=== PATIENT | female | born 1965 | race Caucasian/White ===

== ENCOUNTER 2020-09-15 06:00 | Day surgery (SDC) | payer MEDICAID ==
[2020-09-11 11:59] LABS: ALBUMIN 3.8 G/DL (3.4-5.0); ALKALINE PHOSPHATASE 107 IU/L (46-116); BLOOD UREA NITROGEN 12 MG/DL (7-18); CALCIUM 10.5 MG/DL (8.5-10.1); CHLORIDE 105 MMOL/L (99-107); CREATININE 0.63 MG/DL (0.40-0.90); PRE OP ALT 49 U/L (30-65); PRE OP ANION GAP 9 (8-16); PRE OP AST 39 U/L (10-37); PRE OP BILIRUB, TOTAL 0.6 MG/DL (0.0-1.0); PRE OP GLUCOSE 103 MG/DL (70-104); PRE OP SODIUM 141 MMOL/L (135-145); TOTAL CARBON DIOXIDE 27.3 MMOL/L (24-32); TOTAL PROTEIN 7.5 G/DL (6.4-8.2); eGFR > 90 ML/MIN
[2020-09-11 12:07] LABS: BASOPHILS # (AUTO) 0.1 X10'3 (0-0.2); BASOPHILS % (AUTO) 1.2 % (0-1); EOSINOPHILS # (AUTO) 0.4 X10'3 (0-0.9); EOSINOPHILS % (AUTO) 7.3 % (0-6); LYMPHOCYTES # (AUTO) 2.3 X10'3 (1.1-4.8); LYMPHOCYTES % (AUTO) 43.3 % (21-51); MEAN CORPUSCULAR HEMOGLOBIN 28.1 PG (27.0-31.0); MEAN CORPUSCULAR HGB CONC 33.1 g/dL (33.0-36.5); MEAN PLATELET VOLUME 7.9 FL (7.4-10.4); MONOCYTES # (AUTO) 0.5 X10'3 (0-0.9); MONOCYTES % (AUTO) 10.1 % (2-12); NEUTROPHILS % (AUTO) 38.1 % (42-75); PRE OP HEMATOCRIT 41.9 % (35.0-45.0); PRE OP HEMOGLOBIN 13.9 g/dL (12.0-16.0); PRE OP PLATELET COUNT 326 X10'3 (140-440); RED BLOOD COUNT 4.93 X10'6 (4.20-5.60); RED CELL DISTRIBUTION WIDTH 16.4 % (11.5-14.5)
[~2020-09-15] VITALS: Ht 167.6 cm; Wt 122.7 kg
[2020-09-15] VITALS (7 sets, daily range): BP systolic 109–117; BP diastolic 66–78
[~2020-09-15 06:00] MED LIST: ASPI-1475 PO; CETI-90 PO; GABA300C PO; HYDR-3972 PO; MULT-1085 PO; cefazolin/dext.iso 2gm/100ml IV ONE; famotidine 20mg tablet PO ONE; ringers solution, lacted 1,000 ML IV SCH
[2020-09-15] MEDS ORDERED: BUPIVAcaine/PF 2.5 mg/ml (0.25%) 30ml vial ONE (06:39)
[2020-09-15] MEDS ORDERED: LIDOcaine 0.5% (5mg/ml) 50ml vial ONE (07:14)
[2020-09-15] MEDS ORDERED: ceFAZolin/D5W- 1GM premix 50 ML IV ONE (07:40)
[2020-09-15] MEDS ORDERED: morphine 4 MG/ML inj SYRINge IV PRN (08:10)
[2020-09-15] MEDS ORDERED: ringers solution, lacted 1,000 ML IV SCH (08:10)
[2020-09-15] MEDS ORDERED: proCHLORperazine 10 MG/2 ml inj IV PRN (08:10)
[2020-09-15] MEDS ORDERED: ondansetron/PF 4mg/2ml inj IV PRN (08:10)
[2020-09-15] MEDS ORDERED: morphine 2 MG/ML inj. syringe IV PRN (08:10)
[2020-09-15] MEDS ORDERED: labetalol 20mg/4ml (5mg/ml) syringe IV PRN (08:10)
[2020-09-15] MEDS ORDERED: acetaminophen 1,000mg/100ml IV 100 ML IV PRN (08:10)
[2020-09-15] MEDS ORDERED: meperidine/PF 25mg/ml syringe IV PRN ×3 (08:10)
[2020-09-15] MEDS ORDERED: hydrALAZINE 20mg/ml inj. IV PRN (08:10)
[2020-09-15] MEDS ORDERED: midazolam 1 mg/ML 2ml injection ONE (08:15)
[2020-09-15] MEDS ORDERED: fentaNYL/PF 50MCG/1 ML 2ML syringe ONE (08:15)
[2020-09-15] MEDS ORDERED: propofol inj 20 ML IV ONE (08:34)
--- NOTE | 2020-09-15 08:42 | NUR ---
Received from OR via [facility], accompanied by Anesthesiologist DR SANCHEZ and report given by Anesthesiologist. 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 Addendum: 09/15/20 at 0901 by Reanna Minor RN Amended: Links added.
--- NOTE | 2020-09-15 09:42 | NUR ---
PT COMFORTABLE, DENIES PAIN, D/C INSTRUCTIONS GIVEN AND GONE OVER W/PT WHO VERBALIZED UNDERSTANDING. PT D/CD TO HOME VIA W/C TO PRIVATE VEHICLE W/O INCIDENT. Addendum: 09/15/20 at 1000 by Reanna Minor RN Amended: Links added.
== END 2020-09-15 09:42 | disposition home or self-care (01) ==
LOC: PAS 06:00
PROVIDERS: ATTEND Orthopaedic Surgery Hand Surgery
DX: G56.02 Carpal tunnel syndrome, left upper limb (principal); J45.909 Unspecified asthma, uncomplicated; G43.909 Migraine, unspecified, not intractable, without status migrainosus; M19.072 Primary osteoarthritis, left ankle and foot; E66.9 Obesity, unspecified; Z68.41 Body mass index [BMI] 40.0-44.9, adult; Z96.651 Presence of right artificial knee joint; Z20.822 Contact with and (suspected) exposure to COVID-19; Z90.49 Acquired absence of other specified parts of digestive tract; Z88.8 Allergy status to other drugs, medicaments and biological substances; Z91.09 Other allergy status, other than to drugs and biological substances; Z79.899 Other long term (current) drug therapy; Z79.82 Long term (current) use of aspirin; Z82.61 Family history of arthritis; Z82.49 Family history of ischemic heart disease and other diseases of the circulatory system; Z83.6 Family history of other diseases of the respiratory system; Z80.8 Family history of malignant neoplasm of other organs or systems
CPT/HCPCS: 29848; 36415; 80053; 82948; 85025; 93005; J0131; J2001; J2175; J2250; J2704; J3010; J3490; U0003; U0005; A4215; A7000; J7120

== ENCOUNTER → 2023-08-13 | Outpatient (CLI) | payer MEDICARE, MEDICAID ==
[~2023-08-13] MED LIST changes: -cefazolin/dext.iso 2gm/100ml IV ONE; -famotidine 20mg tablet PO ONE; -ringers solution, lacted 1,000 ML IV SCH
== END | disposition home or self-care (01) ==
LOC: RAD 12:41
PROVIDERS: ATTEND Nurse Practitioner
DX: Z01.818 Encounter for other preprocedural examination (principal)
CPT/HCPCS: 71045

== ENCOUNTER 2024-09-23 12:35 | Outpatient (CLI) | payer MEDICARE, MEDICAID ==
[~2024-09-23 12:35] MED LIST changes: -ASPI-1475 PO; -GABA300C PO; -HYDR-3972 PO; +albuterol IH; +vitamin D PO
--- NOTE | 2024-09-23 14:55 | RADIOLOGY REPORT ---
Procedure: CT CT LOWER EXTREMITY Reason for study/Clinical History: PAIN IN LEFT FOOT Comparison Study: None CTA LOWER EXTREMITY RUNOFF WITH CONTRAST DATED 09/23/2024 12:53 PM Radiation Dose Information: CT Dose: CTDI volume is 14.36+ 0.14 mGy. Dose-length product is 401.64 mGy*cm TECHNIQUE: Multiple contiguous CT axial images obtained of the left foot without intravenous contrast . Coronal and sagittal reformatted images obtained from the source axial data. FINDINGS: Slight bony demineralization. Alignment is maintained. There is fusion of the interphalangeal joints of the 2nd and 3rd digits and partially in the 4th and 5th digits. Mild degenerative changes of the tibiotalar joint as well as the talonavicular and subtalar joints. Dorsal and plantar calcaneal enth esophytes. Dorsal fixation devices and fusion is seen within the cuneiforms and the navicular. The kim rdware components are intact without periprosthetic lucency or fracture. Muscle bundles of the left f oot are intact. There is subcutaneous edema in the plantar aspect of the foot. IMPRESSION: 1. No acute fracture or traumatic malalignment. 2. Dorsal fixation devices and fusion within the cuneiforms and the navicular. The hardware component s are intact. 3. Degenerative changes of the left ankle and foot.
== END 2024-09-23 23:59 | disposition home or self-care (01) ==
LOC: RAD 12:35
PROVIDERS: ATTEND Family Medicine
DX: M19.072 Primary osteoarthritis, left ankle and foot (principal); M79.672 Pain in left foot; M77.32 Calcaneal spur, left foot
CPT/HCPCS: 73700

== ENCOUNTER 2024-11-13 22:38 | Emergency (ER) | payer MEDICARE, MEDICAID ==
[~2024-11-13] VITALS: Ht 167.6 cm; Wt 95.3 kg
[2024-11-13 22:54] VITALS: BP 154/57; PULSE 77; O2SAT 99
[2024-11-13] MEDS ORDERED: BUPIVAcaine 0.5% W/EPI /PF 10ml vial IJ STA (23:00)
[2024-11-14 01:15] VITALS: RESP 15
[2024-11-14] MEDS: ketorolac trometh 15mg/ml vial 15 MG/ML ML IM ONE (01:15)
--- NOTE | 2024-11-14 01:16 | Physician Documentation ---
HPI ~ General Chief Complaint: Tooth Problem Stated Complaint: BROKEN TOOTH Time Seen by MD: 01:16 History of Present Illness HPI Comment 59-year-old female presenting with dental pain She tells me that she was biting down on a frozen protein bar, when she felt her right upper front tooth crack. She reports pain in that tooth only. She looked in the mirror and it looks broken. She did not take any pain medication or other treatments. She did have a root canal on that tooth in the past. No other acute concerns. Medication Reconciliation Allergies: Coded Allergies: adhesive (Verified Allergy, Unknown, BUMPY RED ITCHY RASH, 11/13/24) prednisolone (Verified Allergy, Unknown, ITCHING, RED FACE & BURNING, ) propranolol (Verified Adverse Reaction, Unknown, DAZED AND CONFUSED, 11/13/24) Scheduled Multivitamin (Multi Vitamin Daily), 1 TAB PO DAILY, (Reported) [vitamin D], 1 TAB PO DAILY, (Reported) Scheduled PRN Cetirizine HCl (Zyrtec), 1 TAB PO PRN PRN for allergies, (Reported) [albuterol], 90 MCG IH PRN PRN for SOB or wheezing, (Reported) Review of Systems ENT: Reports: mouth pain Physical Exam Vital Signs: Temperature: 96.3, Source: Temporal, Heart Rate: 77, Respiratory Rate: 15, BP: 154/57, Pulse Oximetry: 99, Weight: 95.350 Physical Exam General: This is a pleasant and slightly uncomfortable appearing middle-aged woman, not in distress HEENT: oropharynx is moist On exam, tooth number 8 is tender to palpation. There is a crack through the posterior tooth that extends across the entire tooth, consistent with a fracture. Heart: Regular rate and rhythm, normal-appearing peripheral perfusion Lungs: normal work of breathing, normal oxygen saturation on room air Neuro: Alert and oriented Psychiatric: Calm and cooperative with exam Procedures Procedures Procedure note: Fractured tooth repair Indication: Tooth fracture, pain control The consent: Verbal consent obtained from the patient Procedure: A dental block was performed using bupivacaine, for pain control. Using dental cement, cement was applied over the fractured tooth, and to dry. The patient tolerated this well, no complications. Progress Results/Orders Results/Orders Vital Signs 11/13/24 11/14/24 11/14/24 22:54 01:15 02:56 Temp 96.3 96.3 Pulse 77 Resp 15 15 B/P (MAP) 154/57 Pulse Ox 99 Medical Decision Making Differential Dx:Considerations: Include: Alveolar fracture, Tooth avulsion, Tooth Fracture, Tooth subluxation Additional Comment The patient presents with a fractured tooth. She was given a dental block for pain control. Cement was placed over the broken tooth to prevent movement and to protect the fracture site. She will be discharged with symptomatic treatment and outpatient follow up with a dentist. Departure Time of Disposition: 02:46 Disposition: 01 HOME / SELF CARE / HOMELESS Impression: Primary Impression: Tooth fracture Condition: Improved Discharge Instructions: Dental Pain Referrals: NO PRIMARY CARE PROVIDER (PCP) Education Educated: Patient Educated regarding: diagnosis, need for follow up Signature Scribe Signature: na Attestation: ANDREI Alfonso MD Nov 14, 2024 01:16
[2024-11-14] MEDS: BUPIVAcaine 0.5% inj/PF 30 ml vial IJ ONE (01:41)
[2024-11-14 02:56] VITALS: TEMP 96.3
== END 2024-11-14 03:02 | disposition home or self-care (01) ==
LOC: ER 22:38
DX: S02.5XXA Fracture of tooth (traumatic), initial encounter for closed fracture (principal); Z88.8 Allergy status to other drugs, medicaments and biological substances; Z91.048 Other nonmedicinal substance allergy status; Z79.899 Other long term (current) drug therapy; X58.XXXA Exposure to other specified factors, initial encounter; Y93.89 Activity, other specified; Y92.89 Other specified places as the place of occurrence of the external cause; Y99.8 Other external cause status
CPT/HCPCS: 64400; 96372; 99284; A4615; J1885